=== PATIENT | female | born 1965 | race Caucasian/White ===

== ENCOUNTER 2016-10-23 09:41 | Observation (INO) | payer OTHER ==
[2016-10-19 12:38] LABS: BASOPHILS 0.3 %; BASOPHILS ABSOLUTE 0.03 10/3/uL (0.0-0.16); EOSINOPHILS 1.4 %; EOSINOPHILS ABSOLUTE 0.15 10/3/uL (0.0-0.53); HEMOGLOBIN 13.2 g/dL (12.0-16.0); IMMATURE GRANULOCYTES 0.4 %; IMMATURE GRANULOCYTES ABSOLUTE 0.04 10/3/uL (0.0-0.11); LYMPHOCYTES 45.1 %; LYMPHOCYTES ABSOLUTE 4.93 10/3/uL (0.67-4.30); MEAN CORPUS HGB CONC 32.7 g/dL (32.0-36.0); MEAN CORPUSCULAR HEMOGLOB 27.7 pg (26.0-34.0); MEAN PLATELET VOLUME 9.2 fL (9.2-13.0); MONOCYTES 4.3 %; MONOCYTES ABSOLUTE 0.47 10/3/uL (0.21-1.20); NEUTROPHILS 48.5 %; NEUTROPHILS ABSOLUTE 5.31 10/3/uL (2.02-8.40); PLATELET COUNT 293 10/3/uL (150-400); RBC DISTRIBUTION WIDTH 14.5 % (12.0-16.0); RED CELL COUNT 4.76 10/6/uL (4.0-5.6); WHITE BLOOD CELLS 10.9 10/3/uL (4.5-10.5)
[2016-10-19 12:40] LABS: HEMATOCRIT 40.4 % (36.0-48.0); MANUAL DIFF NO %; MEAN CORPUSCULAR VOLUME 84.9 fL (80-100)
[2016-10-19 12:42] LABS: BUN (BLOOD UREA NITROGEN) 12 MG/DL (6-23); CALCIUM, SERUM 9.1 MG/DL (8.5-10.4); CHLORIDE, SERUM 103 MMOL/L (96-112); CO2 (CARBON DIOXIDE) 24 MMOL/L (24-34); CREATININE 0.77 MG/DL (0.55-1.02); GFR AFRICAN AMERICAN 103 ML/MIN (>=60); GFR NON AFRICAN AMERICAN 89 ML/MIN (>=60); SODIUM, SERUM 139 MMOL/L (135-148)
[2016-10-19 12:43] LABS: GLUCOSE, SERUM 87 MG/DL (60-99)
--- NOTE | ~2016-10-23 | OP ---
Record Of Operation [facility] [address] [place]. [address] NAME: NATANAEL BARAJAS : 61 STATUS : ADM Flakita PAT#: [id number] AGE: 50 ADM/REG DATE : 10/23/16 MR#: [id number] REPORT SERV DATE: 10/23/16 DICTATED BY: JUDSON RAMOS DATE: 10/23/16 REPORT STATUS : Draft TRANSCRIBED BY: MODL DATE: 10/23/16 DATE OF PROCEDURE: 10/23/2016 PREOPERATIVE DIAGNOSIS: Positive RET jarred-oncogene consistent with MEN2A syndrome. POSTOPERATIVE DIAGNOSIS: Positive RET jarred-oncogene consistent with MEN2A syndrome. PROCEDURE: 1. Total thyroidectomy. 2. Left inferior parathyroid autotransplantation. SURGEON: Judson Ramos M.D. ANESTHESIA: General. COMPLICATIONS: None. COUNTS: All counts correct following the procedure. ESTIMATED BLOOD LOSS: 10 mL. PREOPERATIVE INFORMED CONSENT: We discussed risks and benefits of surgery including, but not limited to bleeding, infection, possible postoperative hypoparathyroidism, possible superior and recurrent laryngeal nerve injury resulting in temporary or permanent deficits, and consent is on the chart. PROCEDURE IN DETAIL: The patient was brought to the operative suite and placed on the operating table in the supine position. General endotracheal anesthesia was initiated without incident using a [facility] monitoring endotracheal tube. The [facility] monitor was hooked up and calibrated and noted to be functioning properly. The neck was cleaned, prepped and draped in the usual sterile fashion. Following this, a transverse incision was marked out 2 fingerbreadths above the sternal notch and injected with 1% Lidocaine with 1:100,000 epinephrine for hemostasis. Following this, a #15-blade scalpel was used to make an incision down to the underlying subcutaneous tissues. Electrocautery was used to perform sharp dissection down through the platysma layer. The midline fascia was divided using electrocautery. The strap muscles were retracted laterally. Dissecting along the right capsular plane, the middle thyroid vein was dissected out and divided using the harmonic scalpel. The inferior pole vessels were dissected out and dissecting in the tracheoesophageal groove, the recurrent laryngeal nerve was identified and confirmed using the NIMH stimulator and preserved as it was followed up superiorly up to its insertion into the cricoid thyroid notch. The inferior pole vessels were then divided at the level of the capsule of the thyroid using the harmonic scalpel. The superior pole vessels were dissected out and the superior laryngeal nerve was identified and confirmed using the NIMH stimulator and preserved. The superior pole vessels were divided using the harmonic scalpel. The gland was further retracted medially and Maldonado's Record Of Operation [facility] [address] [place]. [address] NAME: NATANAEL BARAJAS : 61 STATUS : ADM Flakita PAT#: [id number] AGE: 50 ADM/REG DATE : 10/23/16 MR#: [id number] REPORT SERV DATE: 10/23/16 DICTATED BY: JUDSON RAMOS DATE: 10/23/16 REPORT STATUS : Draft TRANSCRIBED BY: MODL DATE: 10/23/16 ligament was divided using the harmonic scalpel, bipolar cautery, and a #15-blade scalpel. The gland was further dissected off the anterior tracheal wall and divided just to the left of midline using the harmonic scalpel. The specimen was inspected and there was no evidence of any subcapsular parathyroid. The left lobe of the thyroid was then again carefully dissected out just like the right-hand side, dividing the middle thyroid vein using the harmonic scalpel. The inferior pole vessels were dissected out and the recurrent laryngeal nerve was identified in the tracheoesophageal groove and confirmed using the NIMH stimulator and followed superiorly up to its insertion into the cricothyroid notch and was preserved in its entirety. The inferior and superior parathyroids were identified during the dissection of the recurrent laryngeal nerve. The superior pole vessels were again dissected out. The superior laryngeal nerve was also identified using the NIMH stimulator and preserved. The superior pole vessels were divided using the harmonic scalpel. The gland was further retracted medially and Maldonado's ligament was again released using bipolar cautery, a #15-blade scalpel and the harmonic scalpel. The gland was dissected off the anterior tracheal wall using electrocautery and removed en bloc. The left lobe of the thyroid was inspected and there was no evidence of any subcapsular parathyroid tissue. The specimen was sent for permanent section. The wound was copiously irrigated with sterile saline. Any bleeding sites were cauterized using bipolar cautery. The NIMH stimulator was used to stimulate the superior and recurrent laryngeal nerves bilaterally at the end of the case and these were noted to be functioning properly. The deep cervical space was filled with platelet rich plasma and the midline fascia was closed using a running 3-0 Vicryl suture followed by closure of the platysmal layer using interrupted 3-0 Vicryl followed by placement of further platelet poor plasma in the subcutaneous and subplatysmal space. The skin was closed using running subcuticular Prolene suture followed by Benzoin, Steri-Strips and Tegaderm Dressing. The patient was then awakened from anesthesia, extubated, and taken to the recovery room in stable condition. All four parathyroids were identified with the left inferior parathyroid appeared somewhat dusky at the end of the case. This was removed and implanted in the left sternocleidomastoid muscle and oversewn using 4-0 Prolene suture. The patient was awakened from anesthesia and taken to the recovery room in stable condition. KURT/VIC Judson Ramos M.D. / [id number] CC: Judson Ramos M.D.
[~2016-10-23 09:41] MED LIST: ALIGN4 MG PO; CO Q-1075 MG PO; CYANO1000T PO; DIL4TAB PO; ELIQUIS 5 MG TAB5 MG PO; FISH-EPA1000 MG PO; FLEX PO; GLUCCHONDR PO; MULTIVIT/MIN PO; NORCO1 TA1 PO; NORCO1 TA2 PO; SM FLAX SEED1000 MG PO; ZOFRAN4 PO
[2016-10-23 12:38] LABS: PTH (INTRAOPERATIVE) 18.6 PG/ML (10.0-65.0); PTH TAT 0 Hrs 20 Mins
[2016-10-23 16:43] LABS: PTH (INTRAOPERATIVE) 29.5 PG/ML (10.0-65.0); PTH TAT 0 Hrs 00 Mins
[2016-10-24 05:23] LABS: CALCIUM, SERUM 9.6 MG/DL (8.5-10.4)
[2016-10-24] MEDS ORDERED: NORCO1 TA1 PO (08:03)
[2016-10-24] MEDS ORDERED: ZOFRAN ODT4 MG PO (08:03)
[2016-10-24] MEDS ORDERED: DURICEF PO (08:03)
== END 2016-10-24 13:46 | disposition home or self-care (01) ==
LOC: SDC 09:41 → 4SO 19:17
PROVIDERS: Otolaryngology
PROC: 0GTK0ZZ Resection of Thyroid Gland, Open Approach (ICD-10-PCS; 2016-10-23)
PROC: 0GSP0ZZ Reposition Left Inferior Parathyroid Gland, Open Approach (ICD-10-PCS; 2016-10-23)
PROC: 0GTK0ZZ Resection of Thyroid Gland, Open Approach (ICD-10-PCS; principal; 2016-10-23 12:00)
DX: E04.9 Nontoxic goiter, unspecified (principal); Z87.891 Personal history of nicotine dependence; Z85.048 Personal history of other malignant neoplasm of rectum, rectosigmoid junction, and anus; Z98.890 Other specified postprocedural states
CPT/HCPCS: 80048; 82310; 83970; 84295; 85025; 88307; 93005; A9270-GY; G0378; J0690; J1170; J2250; J2270; J2405; J3010